=== PATIENT | male | born 2000 | race Caucasian/White ===

== ENCOUNTER 2020-12-13 00:08 | Emergency (ER) | payer OTHER, SELFPAY ==
[2020-12-13 00:09] VITALS: BP 154/100; PULSE 96; RESP 16; TEMP 36.7; O2SAT 98; BMI 29.5
--- NOTE | 2020-12-13 01:07 | ED_ITS ---
HPI - General Adult General: Chief complaint: General Medical Stated complaint: NEEDLESTICK Time Seen by Provider: 12/13/20 00:59 Source: patient Mode of arrival: ambulatory Limitations: no limitations History of Present Illness: HPI narrative: Patient is a 20-year-old male who presents to ED today with complaints of a needlestick injury. 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 Patient's tetanus is up-to-date. He reports normal childhood immunizations including hepatitis B. Onset (ago): hour(s) Location: upper extremity Associated symptoms: Reports no associated symptoms Review of Systems General: Reports: 10 or more systems reviewed and unremarkable except in HPI and below PFS ED PFSH: Family History (Updated 03/25/20 @ 16:38 by Eli Thakur LPN, RT) Father Diabetes Hypertension Stroke Brother Diabetes Mother Hypertension Denies family history of Clotting disorder Bleeding disorder Social History (Updated 03/25/20 @ 16:40 by Eli Thakur LPN, RT) Smoking and tobacco status: current some day smoker cigarettes and e-cigarettes E-Cigarette Details: e-cigarette and with nicotine E-cig/vape details: 6 months Second hand smoke exposure: No Alcohol intake: never Lives independently: No Household members: family Marital status: Single Current occupational status: employed Current occupation: [employer] History of recent travel: No Current gender identity: Male Special henrry needs: No Agree to transfusion: Yes Physical Exam Const: COMMON NORMALS: no acute distress, average body habitus, patient oriented x3, no limitations, healthy appearing, alert and well nourished Extremity: COMMON NORMALS: normal to inspection and full ROM GENERAL: Yes normal exam except as noted Neuro: COMMON NORMALS: patient oriented x3 SENSORIUM/ORIENTATION: Yes alert Skin: COMMON NORMALS: no rashes or lesions noted GENERAL SKIN EXAM: no rashes or lesions noted Course Vital Signs: Vital signs: Vital Signs Temperature 98.0 F 12/13/20 00:09 Pulse Rate 96 12/13/20 00:09 Respiratory Rate 16 12/13/20 01:20 Blood Pressure 154/100 12/13/20 00:09 Pulse Oximetry 98 12/13/20 00:09 MDM - General Adult MDM Narrative: Medical decision making narrative: I have contacted lab and they are ordering employee exposure labs. Source patient will have consent signed and labs will be drawn on them as well. camp maintenance supervisor contacted. Patient does not wish to start PEP at this time-will await results of source patient. He will followup with Worker's Comp. Discharge Plan Discharge Patient Disposition: Home Clinical Impression: Needlestick injury of finger Condition: Stable Prescriptions: No Action amoxicillin-pot clavulanate [Augmentin] 875-125 mg tablet 1 tab PO BID 10 Days Qty: 20 RF: 0 Discharge Orders: Discharge ED (Routine); Ordered 12/13/20 Ordered By: Jalyn Reyes Activity Restrictions/Additional Instructions: camp maintenance supervisor should contact you regarding patient blood results once they return. If positive, you can elect to begin post exposure prophylactic medications at that time. Please follow-up with Worker's Comp as directed. Coding Level of Care Code ED Recycling Sorter for [employer]
[2020-12-13 01:20] VITALS: RESP 16
[2020-12-13 02:12] LABS: HIV 1 & 2 Antibody Non-Reactive (Non-Reactiv); HIV 1 & 2 Antigen Non-Reactive (Non-Reactiv)
[2020-12-13 02:13] LABS: Hepatitis B Surface AB 3.5 (0-8.5); Hepatitis B Surface Antigen Non-Reactive (Nonreactive); Hepatitis C Virus Antibody Non-Reactive (Nonreactive)
== END 2020-12-13 01:21 | disposition home or self-care (01) ==
PROVIDERS: Emergency Provider Physician Assistant
DX: S61.239A Puncture wound without foreign body of unspecified finger without damage to nail, initial encounter (principal); W46.1XXA Contact with contaminated hypodermic needle, initial encounter; Y99.0 Civilian activity done for income or pay; F17.290 Nicotine dependence, other tobacco product, uncomplicated
CPT/HCPCS: 86706; 86803; 87340; 87806; 99281

== ENCOUNTER 2021-02-14 01:02 | Outpatient (CLI) | payer OTHER, SELFPAY ==
[2021-02-14 02:18] LABS: HIV 1 & 2 Antibody Non-Reactive (Non-Reactiv); HIV 1 & 2 Antigen Non-Reactive (Non-Reactiv); Hepatitis B Surface Antigen Non-Reactive (Nonreactive); Hepatitis C Virus Antibody Non-Reactive (Nonreactive)
== END 2021-02-14 01:03 | disposition home or self-care (01) ==
LOC: LAB 01:05
PROVIDERS: Visit Provider Emergency Medicine
DX: Z20.6 Contact with and (suspected) exposure to human immunodeficiency virus [HIV] (principal); Z20.5 Contact with and (suspected) exposure to viral hepatitis
CPT/HCPCS: 86803; 87340; 87806

== ENCOUNTER 2021-06-11 17:24 | Outpatient (CLI) | payer OTHER, SELFPAY ==
[2021-06-11 18:13] LABS: SARS Covid-2 Antigen Negative (Negative)
[2021-06-14 16:54] LABS: Quest SARS-CoV-2 RNA NOT DETECTED (NOT DETECTED)
== END 2021-06-11 17:25 | disposition home or self-care (01) ==
LOC: LAB 17:28
PROVIDERS: Visit Provider Emergency Medicine
DX: Z20.822 Contact with and (suspected) exposure to COVID-19 (principal)
CPT/HCPCS: 87426; 87635

== ENCOUNTER 2021-09-16 07:46 | Emergency (ER) | payer SELFPAY ==
[2021-09-16 07:55] VITALS: BP 164/89; PULSE 100; RESP 18; TEMP 37; O2SAT 99; BMI 23.6
--- NOTE | 2021-09-16 07:55 | ED_ITS ---
HPI - Male Genitourinary General: Chief complaint: General Medical Stated complaint: Test for STD Time Seen by Provider: 09/16/21 07:48 Source: patient Mode of arrival: ambulatory Limitations: no limitations History of Present Illness: HPI Narrative: Patient is a nice 20-year-old male who presents to the ED today requesting STD testing. Patient states 3 days ago he had a homosexual encounter with a male individual who later alerted him he tested positive for gonorrhea. Patient tells me he had receptive anal intercourse with the individual (individual was wearing a condom). He also states he received oral intercourse from the individual. Patient is not having dysuria or penile discharge. No genital lesions/rashes. No testicular pain/swelling. He does not complain of any rectal pain, swelling or discharge. He does have concerns regarding a small oral lesion that has appeared. He does not complain of a sore throat. MD Complaint: possible STD exposure Onset (ago): day(s) Associated symptoms: Deny dysuria, hematuria, nausea or vomiting Related Data: Sexually active: Yes Review of Systems Const: Denies: fever(s), chills, body aches, fatigue or malaise Card: Denies: chest pain Resp: Denies: dyspnea GI: Denies: abdominal pain, nausea, vomiting, diarrhea, rectal pain, rectal swelling, rectal itching, change in stool character, hematochezia, melena or mucus in stool : Denies: flank pain, dysuria, hematuria, genital pain, genital lesions, penile discharge, testicular pain, testicular mass, scrotal swelling, painful ejaculations or hematospermia Skin/Breast: Denies: rash Neuro: Denies: headache(s) PFSH ED PFSH: Family History (Updated 03/25/20 @ 16:38 by Eli Thakur LPN, RT) Father Diabetes Hypertension Stroke Brother Diabetes Mother Hypertension Denies family history of Clotting disorder Bleeding disorder Social History (Updated 03/25/20 @ 16:40 by Eli Thakur LPN, RT) Smoking and tobacco status: current some day smoker cigarettes and e-cigarettes E-Cigarette Details: e-cigarette and with nicotine E-cig/vape details: 6 months Second hand smoke exposure: No Alcohol intake: never Lives independently: No Household members: family Marital status: Single Current occupational status: employed Current occupation: [employer] History of recent travel: No Current gender identity: Male Special henrry needs: No Agree to transfusion: Yes Physical Exam Const: COMMON NORMALS: no acute distress, average body habitus, patient oriented x3, no limitations, healthy appearing, alert and well nourished GENERAL APPEARANCE: cooperative ORIENTATION/CONSCIOUSNESS: Yes awake, Yes oriented to person, Yes oriented to place and Yes oriented to time HENMT: COMMON NORMALS: normocephalic and atraumatic HEAD & SCALP: normocephalic and atraumatic MOUTH: other (Apthous ulcer to inner lower lip) THROAT: posterior oropharynx normal, tonsils normal and uvula midline GI: RECTAL EXAM: Yes deferred : OTHER: deferred Neuro: COMMON NORMALS: patient oriented x3 SENSORIUM/ORIENTATION: Yes alert, Yes oriented to person, Yes oriented to place and Yes oriented to time Skin: COMMON NORMALS: no rashes or lesions noted GENERAL SKIN EXAM: no rashes or lesions noted Course Vital Signs: Vital signs: Vital Signs Temperature 98.6 F 09/16/21 07:55 Pulse Rate 100 09/16/21 07:55 Respiratory Rate 18 09/16/21 07:55 Blood Pressure 164/89 09/16/21 07:55 Pulse Oximetry 99 09/16/21 07:55 MDM - Male MDM Narrative: Medical decision making narrative: Patient is not having any signs or symptoms of active gonorrhea infection at this time however exposure was only 3 days ago. We will test for gonorrhea/chlamydia off of his urine. Recommended testing at extragenital sites of throat and rectum. I contacted lab for further instructions on specific test/swabs however they tell me the telesales representative for [employer] is not working today and recommend that I go on to the [employer] website and search through their testing directory. I did find the specific test that needed to be ordered however I was then told by lab that the test needed to be carrier sent suzie as it could only stay at room temperature for a specific amount of time and unfortunately the carrier is not running because of the holiday. Patient will be treated prophylactically based on his known positive exposure. Will give 500mg Rocephin prior to DC and place on Doxycycline. Recommend he follow up with PCP for full STD testing. We spoke about increased risk of HIV/gonorrhea/syphilis in the MSM population. He states he plans on doing these as he is interested in PrEP therapy. Discussed sexual abstinence until treatment is finished. If he starts developing symptoms (genital, anorectal, and pharyngeal symptoms discussed) he needs to be tested at these specific sites. Patient verbalized understanding. Lab Data: Labs: Lab Results 09/16/21 08:05 Urine Color Yellow (Yellow) Urine Appearance Clear (CLEAR) Urine pH 5 (5-7) Ur Specific Gravit y 1.020 (1.005-1.030) Urine Protein Neg (Negative) Urine Glucose (UA) Norm (Normal) Urine Ketones Negative (Negative) Urine Blood Neg (Negative) Urine Nitrate Negative (Negative) Urine Bilirubin Neg (Negative) Urine Urobilinogen Norm mg/dL mg/dL (Negative) Ur Leukocyte Sadie ase Negative (Negative) Discharge Plan Discharge Patient Disposition: Home Clinical Impression: Exposure to gonorrhea Condition: Stable Prescriptions: New doxycycline monohydrate 100 mg capsule 100 mg PO Q12H 10 Days Qty: 20 RF: 0 No Action amoxicillin-pot clavulanate [Augmentin] 875-125 mg tablet 1 tab PO BID 10 Days Qty: 20 RF: 0 Discharge Orders: Discharge ED (Routine); Ordered 09/16/21 Ordered By: Jalyn Reyes Patient Instructions: Sexually Transmitted Diseases (ED), Safe Sex Practices (ED) Coding Level of Care Code 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
[2021-09-16 08:11] LABS: Add Urine Microscopic? NO; Charge for UA Resulting for Rev
[2021-09-16 08:16] LABS: Bilirubin Urine Neg (Negative); Blood Urine Neg (Negative); Glucose Urine UA Norm (Normal); Ketones Urine Negative (Negative); Leukocyte Esterase Urine Negative (Negative); Nitrate Urine Negative (Negative); Protein Urine Neg (Negative); Urine Appearance Clear (CLEAR); Urine Color Yellow (Yellow); Urobilinogen Urine Norm (Negative); pH Urine 5 (5-7)
== END 2021-09-16 08:50 | disposition home or self-care (01) ==
PROVIDERS: Emergency Provider Physician Assistant
DX: Z20.2 Contact with and (suspected) exposure to infections with a predominantly sexual mode of transmission (principal); F17.210 Nicotine dependence, cigarettes, uncomplicated; F17.290 Nicotine dependence, other tobacco product, uncomplicated
CPT/HCPCS: 81003; 87491; 87591; 99282; J0696

== ENCOUNTER 2023-09-04 15:24 | Outpatient (CLI) | payer OTHER, SELFPAY ==
[2023-09-04 16:32] LABS: Hepatitis B Core IgM Non-Reactive (Nonreactive); Hepatitis B Surface AB 22.1 (11.5-1000)
[2023-09-28 10:30] LABS: HIV 1 & 2 Antibody Non-Reactive (Non-Reactiv); HIV 1 & 2 Antigen Non-Reactive (Non-Reactiv)
== END 2023-09-04 15:25 | disposition home or self-care (01) ==
LOC: LAB 15:33
PROVIDERS: Visit Provider Family Medicine
DX: Z20.6 Contact with and (suspected) exposure to human immunodeficiency virus [HIV] (principal); W46.0XXA Contact with hypodermic needle, initial encounter
CPT/HCPCS: 86705; 86706; 87806

== ENCOUNTER → 2023-12-28 13:51 | Outpatient (BNVA) | payer OTHER, SELFPAY | PROVIDERS: PCP Family Medicine; Visit Provider Family Medicine | DX: F41.9 Anxiety disorder, unspecified (principal) | CPT/HCPCS: 84443 ==

== ENCOUNTER → 2024-02-12 15:38 | Outpatient (BNVA) | payer OTHER, SELFPAY | PROVIDERS: PCP Family Medicine; Visit Provider Family Medicine | DX: Z00.00 Encounter for general adult medical examination without abnormal findings (principal); Z13.1 Encounter for screening for diabetes mellitus | CPT/HCPCS: 80053; 83036 ==

== ENCOUNTER 2025-02-26 13:25 | Outpatient (CLI) | payer SELFPAY | END 2025-02-26 13:26 | disposition home or self-care (01) | PROVIDERS: PCP Family Medicine; Visit Provider Family Medicine | DX: R36.9 Urethral discharge, unspecified (principal); Z11.3 Encounter for screening for infections with a predominantly sexual mode of transmission; R30.0 Dysuria | CPT/HCPCS: 81000; 86592; 86705; 86706; 86709; 86803; 87340; 87491; 87591; 87806 ==